=== PATIENT | male | born 2000 | race Caucasian/White ===

== ENCOUNTER 2018-06-26 18:20 | Emergency (ER) | payer OTHER ==
[~2018-06-26 18:20] MED LIST: ISOVUE-370 76%-LOCM 1 ML ONE
[2018-06-26 19:25] LABS: #Monocytes 1.5 thou/uL (0.11-0.59); %Basophils 0.3 % (0.0-1.0); %Lymphocytes 14.5 % (28.0-48.0); %Monocytes 11.3 % (0.0-4.0); %Neutrophils 73.9 % (31.0-61.0); Hemoglobin 16.5 g/dL (14.0-18.0); Mean Corpuscular HGB CONC 33.9 g/dL (32.0-36.0); Mean Corpuscular Hemoglobin 29.8 pg (25.0-35.0); Mean Corpuscular Volume 87.7 fL (78.0-98.0); Mean Platelet Volume 7.7 fL (7.4-10.4); Platelet Count 256 thou/uL (130-400); RBC Distribution Width 11.1 % (11.5-14.5); Red Blood Cell (RBC) Count 5.54 mill/uL (4.00-5.20); White Blood Cell (WBC) Count 13.5 thou/uL (4.8-10.8)
[2018-06-26 19:45] LABS: ALT (SGPT) 27 U/L (8-55); AST (SGOT) 13 U/L (10-45); Albumin 4.6 g/dL (3.5-5.0); Alkaline Phosphatase 103 U/L (Less than 750); Anion Gap 12 mmol/L (10-20); BUN (Urea Nitrogen) 11 mg/dL (8.4-21.0); Bilirubin, Total 0.8 mg/dL (0.2-1.2); Calc. Creatinine Clearance 0 mL/min (70-130); Calcium 10.2 mg/dL (7.8-10.44); Carbon Dioxide 33 mmol/L (22-29); Chloride 94 mmol/L (98-107); Estimated GFR-MDRD 79; Globulin 3.5 g/dL (2.4-3.5); Glucose 103 mg/dL (70-105); Potassium 4.3 mmol/L (3.5-5.1); Protein, Total 8.1 g/dL (6.0-8.3); Sodium 135 mmol/L (136-145)
[2018-06-26] MEDS ORDERED: Dexamethasone 4 mg/ml Vial ONE (22:55)
--- NOTE | 2018-06-26 23:25 | CT ---
CT NECK SOFT TISSUE WITH CONTRAST: History: Peritonsillar abscess. Comparison: None. FINDINGS: There is hyperemia and striated enhancement of both palatine tonsils. There is also hyper enhancement and enlargement of the lingual tonsils. Nasopharyngeal tonsils are only mildly enlarged and mildly h yper enhancing. No tonsillar or peritonsillar abscess is yet appreciated. Mildly reactive cervical lymph nodes are pr esent. Cervical spine alignment is normal. Lung apices are clear. The retropharyngeal soft tissues are without edema or fluid or enhancing tissue. IMPRESSION: 1. Pharyngitis and tonsillitis without peritonsillar abscess. 2. Bilateral level 2A lymph nodes which are symmetric measuring up to 2.5 cm in size, probably reacti ve in nature. Clinical follow up as an outpatient to resolution is recommended by clinical exam. POS: [facility]
== END 2018-06-26 22:51 | disposition home or self-care (01) ==
LOC: ERS 18:20
DX: J36 Peritonsillar abscess (principal); F17.210 Nicotine dependence, cigarettes, uncomplicated
CPT/HCPCS: 36415; 70491; 80053; 85025; 87081; 87430; J1100; Q9966

== ENCOUNTER 2022-02-17 19:00 | Outpatient (CLI) | payer OTHER | END 2022-02-17 19:01 | disposition home or self-care (01) | LOC: SLEEPLAB 19:00 | DX: G47.33 Obstructive sleep apnea (adult) (pediatric) (principal); R53.83 Other fatigue; F32.A Depression, unspecified | CPT/HCPCS: 95810 ==

== ENCOUNTER 2022-08-13 19:00 | Outpatient (CLI) | payer OTHER | END 2022-08-13 19:01 | disposition home or self-care (01) | LOC: SLEEPLAB 19:00 | PROVIDERS: ATTEND Nurse Practitioner Psychiatric/Mental Health | DX: G47.33 Obstructive sleep apnea (adult) (pediatric) (principal); G47.9 Sleep disorder, unspecified; R53.83 Other fatigue; F32.A Depression, unspecified; R06.83 Snoring; G47.10 Hypersomnia, unspecified; E66.9 Obesity, unspecified; G47.61 Periodic limb movement disorder; Z68.31 Body mass index [BMI] 31.0-31.9, adult | CPT/HCPCS: 95811 ==